=== PATIENT | female | born 1965 | race African-American/Black ===

== ENCOUNTER 2020-09-13 18:34 | Emergency (ER) | payer BC, SELFPAY ==
[2020-09-13 18:36] VITALS: BP 163/89; PULSE 88; RESP 16; TEMP 37; O2SAT 100; BMI 29.9
--- NOTE | 2020-09-13 19:29 | HMH.EDUTC ---
[facility] [place] Impression: Exposure to COVID-19 virus Disposition: Home, Self-Care Condition on Discharge: Good Instructions: Preventing the Spread of Coronavirus Discharge Instructions Additional Instructions: Drink plenty of fluids. Take tylenol for pain or fever. Follow up with your regular doctor. GO TO THE ER FOR ANY WORSENING SYMPTOMS FOLLOW THE DIRECTIONS ON THE COVID-19 HAND OUT THAT WE GAVE YOU REGARDING SELF-ISOLATION UNTIL YOU KNOW YOUR COVID-19 RESULTS Referrals: Ishan Hamlin [Primary Care Provider] - Forms: Work/School Release Time of Disposition: 19:40 Medical Decision Making - Medical Records Medical records reviewed: No: I reviewed the patient's medical records. - Emiliano Inquiry Pt receiving controlled substance: No Vital Signs: 09/13/20 18:36 09/13/20 19:47 Temperature 98.6 F 98.6 F Temperature Source Oral Oral Pulse Rate 88 Pulse Rate [Left Radial] 88 Respiratory Rate 16 16 Blood Pressure 163/89 H Blood Pressure [Right Arm] 163/89 H Blood Pressure Mean [Right Arm] 113 Blood Pressure Source Automatic Cuff Blood Pressure Source [Right Arm] Automatic Cuff Blood Pressure Position Sitting Blood Pressure Position [Right Arm] Sitting 02 Sat by Pulse Oximetry 100 Oxygen Delivery Method Room Air Room Air Orders (Tests/Meds): ORDERS Category Date Time Status Covid-19 Nasal PCR ([facility]) Routine Lab 09/13/20 19:15 [place] [facility] [place] - General Stated complaint: Cough, Wants COVID test Time Seen by Provider: 09/13/20 19:29 Mode of Arrival: Ambulatory Source of Information: Patient Limitations: No Limitations Description of Symptoms (Recalled from Triage Doc. by RN): covid test, exposed by sister this weekend, no symptoms HEENT Symptoms (Recalled from RN notes): No Resp Symptoms (Recalled from RN notes): No Skin Symptoms (Recalled from RN notes): No MS Symptoms (Recalled from RN notes): No Functional Status (Recalled from RN notes): wnl - History of Present Illness Provider Complaint: She states that her sister tested positive for covid this morning. This patient denies any symtpoms at this time. - Related Data Allergies Allergy/AdvReac Type Severity Reaction Status Date / Time No Known Allergies Allergy Verified 09/13/20 19:19 - Worker's Comp Is this a Worker's Comp case?: No [facility] History - Hepatitis A Screen Drug use history?: No High risk sexual behaviors?: No History of sexually transmitted infection?: No Currently employed?: No Childcare worker?: No Do you have indoor plumbing?: Yes Do you have electricity?: Yes Attestation statement:: This patient has been screened for Hepatitis A risk factors. I have reviewed the patient's past medical history: Yes ROS Obtained: Yes All systems reviewed & no additional complaints - Constitutional Constitutional: Reports system reviewed and no additional complaints, except as docu, Denies chills, Denies fever(s) - Eyes Eyes: Reports system reviewed and no additional complaints, except as docu - ENT Ears, Nose, Mouth, and Throat: Reports system reviewed and no additional complaints, except as docu - Cardiovascular Cardiovascular: Reports system reviewed and no additional complaints, except as docu - Respiratory Respiratory: Yes system reviewed and no additional complaints, except as docu - Gastrointestinal Gastrointestingal: Reports: system reviewed and no additional complaints, except as docu Physical Exam - General General appearance: alert, in no apparent distress - Head Head exam: atraumatic, normocephalic, normal inspection - Eye Eye exam: Present: normal appearance, PERRL, EOMI - ENT ENT exam: Present: normal exam, normal oropharynx, mucous membranes moist, TM's normal bilaterally, normal external ear exam - Neck Neck exam: Present: normal inspection, full ROM, trachea midline. Absent: meningismus, lymphadenopathy - Chest Chest inspection: Pre
[2020-09-13 19:47] VITALS: BP 163/89; PULSE 88; RESP 16; TEMP 37; O2SAT 100
--- NOTE | 2020-09-14 09:36 | PC.NURSE ---
Patient called for covid results. Notified patient of positive results. Educated on strict quarantine and treatment of symptoms.
== END 2020-09-13 19:48 | disposition home or self-care (01) ==
PROVIDERS: Emergency Provider Nurse Practitioner Family; PCP Family Medicine
DX: U07.1 COVID-19 (principal)
CPT/HCPCS: 99201; U0003